=== PATIENT | female | born 1990 | race Two or more races ===

== ENCOUNTER 2021-06-25 09:55 | Emergency (ER) | payer SELFPAY ==
[~2021-06-25] VITALS: Ht 157.5 cm; Wt 89.8 kg
[2021-06-25 09:57] VITALS: BP 118/71
[2021-06-25 10:18] LABS: Urine WBC None Seen /hpf (0 - 5)
[2021-06-25 10:41] LABS: Urine Bacteria FEW /hpf (None Seen); Urine Blood Negative /uL (Negative); Urine Hyaline Cast FEW /lpf (0 - 2); Urine Mucus FEW (None Seen); Urine Specific Gravity 1.024 (1.001-1.035)
== END 2021-06-25 12:30 | disposition left against medical advice (07) ==
LOC: ER 09:55
DX: R10.30 Lower abdominal pain, unspecified (principal); N93.9 Abnormal uterine and vaginal bleeding, unspecified; Z53.21 Procedure and treatment not carried out due to patient leaving prior to being seen by health care provider
CPT/HCPCS: 81001; 81025

== ENCOUNTER 2022-03-24 16:14 | Emergency (ER) | payer BC, OTHER ==
[~2022-03-24] VITALS: Ht 160 cm; Wt 85.0 kg
[2022-03-24 16:39] VITALS: BP 104/61
== END 2022-03-24 21:07 | disposition home or self-care (01) ==
LOC: ER 16:14
DX: M25.512 Pain in left shoulder (principal)
CPT/HCPCS: 73030

== ENCOUNTER 2024-02-24 01:35 | Emergency (ER) | payer BC ==
[~2024-02-24] VITALS: Ht 154.9 cm; Wt 90.0 kg
[2024-02-24 01:44] VITALS: BP 102/61; PULSE 95; RESP 24; O2SAT 100
== END 2024-02-24 02:57 | disposition left against medical advice (07) ==
LOC: EDBD 01:35 → EDUNIT# 01:35 → ER 01:35
DX: R10.9 Unspecified abdominal pain (principal); R06.02 Shortness of breath; R53.1 Weakness; Z53.21 Procedure and treatment not carried out due to patient leaving prior to being seen by health care provider

== ENCOUNTER 2024-11-16 09:28 | Emergency (ER) | payer BC, MEDICAID ==
[~2024-11-16] VITALS: Ht 152.4 cm; Wt 89.3 kg
--- NOTE | 2024-11-16 09:58 | ED.PDOC ---
General HPI Comments A 34 YEAR OLD FEMALE PRESENTS TO THE ED WITH CHIEF COMPLAINT OF PELVIC PAIN. PATIENT REPORTS THAT SHE HAS BEEN EXPERIENCING LEFT SIDED PELVIC PAIN FOR THE PAST 3 DAYS. PATIENT RELAYS THAT SHE HAS HISTORY OF A 4.2CM LEFT OVARIAN CYST THAT WAS FOUND IN [place], HOWEVER, HER PAIN WAS USUALLY INTERMITTENT AND NEVER LASTED 3 DAYS CONSECUTIVELY. PATIENT NOTES SHE HAS NOT FOLLOWED UP WITH OBGYN. PATIENT STATES SHE HAS ASSOCIATED NAUSEA. PATIENT DENIES ANY VAGINAL BLEEDING, DYSURIA, HEMATURIA, ABDOMINAL PAIN, OR VOMITING. NO OTHER SYMPTOMS REPORTED AT THIS TIME OF CARE. Chief Complaint: Pelvic Pain Time Seen by MD: 09:51 Primary Care Provider: NONE Reviewed notes: Nurses Notes, Medications, Allergies Allergies: Coded Allergies: NO KNOWN ALLERGIES (Unverified , 06/25/21) Home Meds Active Scripts Ibuprofen (Ibuprofen) 800 Mg Tab, 1 TAB PO TID, #20 TAB Prov:SOLA MURGUIA 11/16/24 Information Source: Patient Mode of Arrival: Ambulatory Severity: Moderate Inability to void: None Timing: Days Duration: Since onset Prehospital treatment: None Onset: Spontaneous Symptoms: None History of: None Location: Other (LEFT PELVIC) Modifying factors: None associated signs and symptoms: Other (LEFT PELVIC PAIN) Past Medical History PAST MEDICAL HISTORY: Denies Surgical History: Denies all surgeries [employer]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 Family History Family History: Reviewed,noncontributory to illness Social History Smoker: Non-Smoker Alcohol: Denies ETOH Use Drugs: Denies Drug Use Lives In: Home Constitutional: denies: chills, diaphoresis, fatigue, fever, malaise, sweats, weakness, others EENTM: denies: blurred vision, double vision, ear bleeding, ear discharge, ear drainage, ear pain, ear ringing, eye pain, eye redness, hearing loss, mouth pain, mouth swelling, nasal discharge, nose bleeding, nose congestion, nose pain, photophobia, tearing, throat pain, throat swelling, voice changes, others Respiratory: denies: cough, hemoptysis, orthopnea, SOB at rest, shortness of breath, SOB with excertion, stridor, wheezing, others Cardiovascular: denies: chest pain, dizzy spells, diaphoresis, Dyspnea on exertion, edema, irregular heart beat, left arm pain, lightheadedness, palpitations, PND, syncope, others Gastrointestinal: denies: abdomen distended, abdominal pain, blood streaked bowels, constipated, diarrhea, dysphagia, difficulty swallowing, hematemesis, melena, nausea, poor appetite, poor fluid intake, rectal bleeding, rectal pain, vomiting, others Genitourinary: reports: pain (LEFT PELVIC), others (LEFT PELVIC PAIN); denies: abnormal vagina bleeding, burning, dyspareunia, dysuria, flank pain, frequency, hematuria, incontinence, , vagina discharge, urgency Neurological: denies: dizziness, fainting, headache, left sided numbness, left sided weakness, numbness, paresthesia, pre-existing deficit, right sided numbness, right sided weakness, seizure, speech problems, tingling, tremors, weakness, others Musculoskeletal: denies: back pain, gout, joint pain, joint swelling, muscle pain, muscle stiffness, neck pain, others Integumetry: denies: bruises, change in color, change in hair/nails, dryness, laceration, lesions, lumps, rash, wounds, others Allergic/Immunocompromised: denies: Difficulty Healing, Frequent Infections, Hives, Itching, others Hematologic/Lymphatic: denies: anemia, blood clots, easy bleeding, easy bruising, swollen glands, others Endocrine: denies: excessive hunger, excessive sweating, excessive thirst, excessive urination, flushing, intolerance to cold, intolerance to heat, unexplained weight gain, unexplained weight loss, others Psychiatric: denies: anxiety, bipolar disorder, depression, hopeless, panic disorder, schizophrenia, sleepless, suicidal, others All Other Systems: Reviewed and Negative Physical Exam General Appearance: No Apparent Distress, Obese HEENT: Normal ENT Inspection, PERRL/EOMI Neck: Full Range of Motion, Non-Tender, Normal, Normal Inspection Respiratory: Chest Non-Tender, Lungs Clear, No Accessory Muscle Use, No Respira tory Distress, Normal Breath Sounds Cardiovascular: No Edema, No JVD, No Murmur, No Gallop, Normal Peripheral Pulses, Regular Rate/Rhythm Breast Exam: Deferred Gastrointestinal: No Organomegaly, No Pulsatile Mass, Normal Bowel Sounds, Soft, Suprapubic (TENDERNESS SUPRAPUBIC, NO GUARDING AND REBOUND TENDERNESS. ), Tenderness (SUPRAPUBIC REGION, NO GUARDING AND REBOUND TENDERNESS. ) Genitalia: Deferred Pelvic: Normal External Exam, Tender Adnexa (TENDERNESS ON LEFT PELVIC, NO GUARDING AND REBOUND TENDERNESS. ), Tender Uterus (TENDERNESS SURAPUBIC, NO GUARDING AND REBOUND TENDERNESS. 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 Was a procedure done?: No Differential Diagnosis Kidney stone (Female): Ovarian torsion, Other (UTERINE FIBROIDS AND OVARIAN CYST ) Urinary Problem (Female): UTI X-Ray, Labs, Meds, VS Vital Signs Date Time Temp Pulse Resp B/P (MAP) Pulse Ox O2 Delivery O2 Flow Rate FiO2 11/16/24 10:19 75 16 98 Room Air 11/16/24 10:19 98.8 75 16 115/73 (87) 98 98.8 11/16/24 09:39 98.8 75 16 115/73 (87) 98 98.8 Lab Test 11/16/24 09:34 Range/Units Urine Color Light-yellow Yellow Urine Clarity Clear Clear Urine pH 6.0 5.0-9.0 Urine Specific [place] 1.017 1.001-1.035 Urine Protein Negative Negative Urine Ketones Negative Negative Urine Blood Negative Negative /uL Urine Nitrite Negative Negative Urine Bilirubin Negative Negative Urine Urobilinogen Normal Negative mg/dL Urine Leukocyte Esterase Negative Negative /uL Urine RBC 1 0 - 4 /hpf Urine Microscopic WBC < 1 0-5 /HPF Urine Squamous Epithelial Cells Few <5 /hpf Urine Bacteria None seen None Seen /hpf Urine Glucose Normal Normal mg/dL Urine Test Negative Negative Current Medications Medications (Trade) Dose Ordered Sig/Bull Route Start Time Stop Time Status Last Admin Ketorolac Tromethamine (Toradol Injection) 60 mg ONCE ONCE IM 11/16/24 11:30 11/16/24 11:31 DC 11/16/24 11:45 PATIENT: DESTINEE BECKFORDGABINOCCT: [id number]: [id number] : 1990 LOC: ER ROOM / BED: / AGE / SEX: 34 / F ADM STATUS: [facility] ER SERVICE [id number] ORDERING PHYSICIAN: SOLA MURGUIA PROCEDURE(s): PELUS - PELVIC REASON: LEFT PELVIC PAIN, HX OF LEFT OVARIAN CYST ORDER NUMBER(s): [id number], ACCESSION NUMBER(s): [id number] INDICATION: LEFT PELVIC PAIN, HX OF LEFT OVARIAN CYST TECHNIQUE: Multiple real-time grayscale transabdominal sonographic images along with color and duplex Doppler of the uterus and ovaries were obtained. COMPARISON: None FINDINGS: The uterus measures 10.2 x 6.7 x 4.9 cm. Intrauterine device in satisfactory position. Uterine fibroids are present measuring up to 2.7 cm. Right ovary measures 2.7 x 2.2 x 2.0 cm with normal Doppler color flow Left ovary measures 3.2 x 2.0 x 1.9 cm with normal Doppler color flow IMPRESSION: Intrauterine device in satisfactory position. Fibroid uterus largest of which measures 2.7 cm. ATED BY: IMMANUEL PALMA MD DICTATED DATE/TIME: 11/16/24 130 SIGNED BY: IMMANUEL PALMA MD SIGNED DATE/TIME: 11/16/24 1309 X-Ray, Labs, Meds, VS Comment EXTERNAL MEDICAL RECORDS REVIEWED: [NONE] INDEPENDENT HISTORIANS: [NONE] SOCIAL DETERMINANTS OF HEALTH: [NONE] LABS ORDERED: CBC, BMP, UA, URINE PREG REVIEWED AND INTERPRETED RESULTS: PELVIC US, US TECH INTERPRETATION, NO OVARIAN CYSTS, MULTIPLE UTERINE FIBROIDS NOTED, LARGEST MEASURING 2.7CM, RADIOLOGY SYSTEM DOWN NO OFFICIAL READING FROM RADIOLOGIST. IMAGING ORDERED: PELVIC US TREATMENTS ORDERED: TORADOL 60MG IM PROCEDURES PERFORMED: NONE CRITICAL CARE TIME: NONE I HAVE DISCUSSED THE PATIENT WITH THE ATTENDING PHYSICIAN DR. CALDERA AND HE AGREES WITH THE PATIENT'S PLAN OF CARE AND DISPOSITION. BASED ON HISTORY OF PRESENT ILLNESS, AND PHYSICAL EXAM, PATIENT WILL BE DISCHARGED HOME. DISCUSSED PLAN FOR DISCHARGE HOME WITH RX IBUPROFEN. MEDICATION WARNINGS GIVEN. SHARED DECISION MAKING: DISCUSSED WITH PATIENT THAT THEIR WORKUP WAS NORMAL. PATIENT INSTRUCTED TO FOLLOW UP WITH PRIMARY CARE PROVIDER IN 1-2 DAYS FOR RE- EVALUATION OF SYMPTOMS. PATIENT VERBALIZES UNDERSTANDING TO RETURN TO ED FOR NEW OR WORSENING SYMPTOMS OR IF FOLLOW UP WITH PCP CANNOT BE OBTAINED. PATIENT FEELS COMFORTABLE GOING HOME AT THIS TIME. ALL QUESTIONS ADDRESSED AT TIME OF DISCHARGE. Time of 1ST Reevaluation: 10:12 Reevaluation 1ST: Improved Patient Education/Counseling: Diagnosis, Treatment, Need For Follow Up Family Education/Counseling: Diagnosis, Treatment, No Family Present Medical Screening: No EMC Exist At This Time Departure 1 Departure Time of Disposition: 11:40 Impression: Primary Impression: Uterine fibroid Qualified Codes: D25.1 - Intramural leiomyoma of uterus Disposition: HOME / SELF CARE / HOMELESS Condition: Stable Additional Instructions: FOLLOW-UP WITH PCP IN 1 TO 2 DAYS. TAKE MEDICATIONS PRESCRIBED. RETURN TO ED FOR ANY NEW OR WORSENING SYMPTOMS. e-Prescriptions Ibuprofen (Ibuprofen) 800 Mg Tab 1 TAB PO TID, #20 TAB Prov: SOLA MURGUIA 11/16/24 Discharged With: Self Critical Care Note Critical Care Time?: No Stability Stability form required: No Heart Score Heart Score: Heart Score Response (Comments) Value History N/A 0 EKG N/A 0 Age N/A 0 Risk Factors N/A 0 Troponin N/A 0 Total 0 I personally scribed for SOLA MURGUIA ([email or web address]) on 11/16/24 at 09:58. Electronically submitted by Bruno Rodriguez ([email or web address]). I personally scribed for SOLA MURGUIA ([email or web address]) on 11/16/24 at 09:59. Electronically submitted by Bruno Rodriguez ([email or web address]). I personally scribed for SOLA MURGUIA ([email or web address]) on 11/16/24 at 11:13. Electronically submitted by Bruno Rodriguez ([email or web address]). SOLA MURGUIA Nov 16, 2024 09:58
[2024-11-16 10:19] VITALS: BP 115/73; PULSE 75; RESP 16; TEMP 98.8; O2SAT 98
[2024-11-16 10:44] LABS: Urine Bacteria None Seen /hpf (None Seen)
[2024-11-16 11:07] LABS: Urine Blood Negative /uL (Negative); Urine Clarity Clear (Clear); Urine Color Light-Yellow (Yellow); Urine Protein, UAD Negative (Negative); Urine Specific Gravity 1.017 (1.001-1.035); Urine Squamous Epithelial Cell FEW /hpf (<5); Urine Urobilinogen Normal (Negative); Urine WBC < 1 /HPF (0-5)
[2024-11-16] MEDS: KETOROLAC TROMETH 60MG/2ML VIAL IM ONE ×2 (11:22→11:45)
[2024-11-16] MEDS ORDERED: IBUP-1456 PO (11:24)
--- NOTE | 2024-11-16 13:11 | DVH ---
INDICATION: LEFT PELVIC PAIN, HX OF LEFT OVARIAN CYST TECHNIQUE: Multiple real-time grayscale transabdominal sonographic images along with color and duplex Doppler of the uterus and ovaries were obtained. COMPARISON: None FINDINGS: The uterus measures 10.2 x 6.7 x 4.9 cm. Intrauterine device in satisfactory position. [place] rine fibroids are present measuring up to 2.7 cm. Right ovary measures 2.7 x 2.2 x 2.0 cm with normal Doppler color flow Left ovary measures 3.2 x 2.0 x 1.9 cm with normal Doppler color flow IMPRESSION: Intrauterine device in satisfactory position. Fibroid uterus largest of which measures 2.7 cm.
== END 2024-11-16 11:51 | disposition home or self-care (01) ==
LOC: ER 09:28
DX: D25.9 Leiomyoma of uterus, unspecified (principal); Z79.1 Long term (current) use of non-steroidal anti-inflammatories (NSAID)
CPT/HCPCS: 76856; 81001; 81025; 96372; 99285; J1885